=== PATIENT | female | born 1945 | race Caucasian/White ===

== ENCOUNTER 2018-03-19 10:57 | Day surgery (SDC) | payer MEDICARE, OTHER ==
[~2018-03-19] VITALS: Ht 167.6 cm; Wt 78.6 kg
[~2018-03-19 10:57] MED LIST: CALCIUM 500 +1 EAC2 PO; IRBE150 PO; Multivitamin1 EAC1 PO; SIMV10 PO
== END 2018-03-19 13:17 | disposition home or self-care (01) ==
LOC: ORSCSDS 10:57
PROVIDERS: Internal Medicine Gastroenterology
PROC: 0DBN8ZX Excision of Sigmoid Colon, Via Natural or Artificial Opening Endoscopic, Diagnostic (ICD-10-PCS; principal; 2018-03-19 12:15)
PROC: 0DBL8ZX Excision of Transverse Colon, Via Natural or Artificial Opening Endoscopic, Diagnostic (ICD-10-PCS; principal; 2018-03-19 12:15)
DX: Z12.11 Encounter for screening for malignant neoplasm of colon (principal); D12.3 Benign neoplasm of transverse colon; D12.5 Benign neoplasm of sigmoid colon; K57.30 Diverticulosis of large intestine without perforation or abscess without bleeding; I10 Essential (primary) hypertension; Z79.899 Other long term (current) drug therapy
CPT/HCPCS: 88305; J7120

== ENCOUNTER → 2022-02-05 | Outpatient (CLI) | payer MEDICARE, OTHER | END | disposition home or self-care (01) | LOC: LAB SHORT 10:38 → LAB 10:38 | DX: L30.9 Dermatitis, unspecified (principal); A49.9 Bacterial infection, unspecified; L81.4 Other melanin hyperpigmentation; L82.1 Other seborrheic keratosis; D22.5 Melanocytic nevi of trunk; Z85.850 Personal history of malignant neoplasm of thyroid; L57.0 Actinic keratosis | CPT/HCPCS: 87070; 87205 ==

== ENCOUNTER → 2024-01-25 | Outpatient (CLI) | payer MEDICARE, OTHER ==
[~2024-01-25] MED LIST changes: +ATOR10; +BETAMETHASONE A; +BORIC ACID; +CLENPIQ; +KETO200; +ZOCOR20 MG PO
== END | disposition home or self-care (01) ==
LOC: LAB SHORT 10:58 → PLD 10:58
DX: L84 Corns and callosities (principal)
CPT/HCPCS: 88305